=== PATIENT | male | born 1950 | race Caucasian/White ===

== ENCOUNTER → 2019-08-10 | Outpatient (CLI) | payer MEDICARE | END | disposition home or self-care (01) | LOC: RT 09:02 | DX: Z48.298 Encounter for aftercare following other organ transplant (principal); Z79.899 Other long term (current) drug therapy; Z94.2 Lung transplant status | CPT/HCPCS: 94010 ==

== ENCOUNTER → 2020-09-17 | Outpatient (CLI) | payer MEDICARE | END | disposition home or self-care (01) | LOC: Rad HDHVI 13:50 | PROVIDERS: ATTEND Internal Medicine | DX: I07.1 Rheumatic tricuspid insufficiency (principal); I11.9 Hypertensive heart disease without heart failure | CPT/HCPCS: 93306 ==

== ENCOUNTER → 2020-09-23 | Outpatient (CLI) | payer MEDICARE ==
[~2020-09-23] VITALS: Ht 182.9 cm; Wt 96.6 kg
[~2020-09-23] MED LIST: ADENOSINE 81 MG in GIVE UN-DILUTED 0 ML IV ONE; ADENOSINE 90 MG/30 ML INJ IV ONE
== END | disposition home or self-care (01) ==
LOC: Rad HDHVI 12:49
PROVIDERS: ATTEND Internal Medicine Cardiovascular Disease
DX: Z01.810 Encounter for preprocedural cardiovascular examination (principal); I10 Essential (primary) hypertension; E78.5 Hyperlipidemia, unspecified; Z82.49 Family history of ischemic heart disease and other diseases of the circulatory system
CPT/HCPCS: 78452; 93005; 96374; 96375; A9500; J0153

== ENCOUNTER → 2021-12-04 | Outpatient (CLI) | payer MEDICARE | END | disposition home or self-care (01) | LOC: Rad HDHVI 14:54 | PROVIDERS: ATTEND Internal Medicine Cardiovascular Disease | DX: R07.89 Other chest pain (principal); I10 Essential (primary) hypertension | CPT/HCPCS: 93306 ==

== ENCOUNTER → 2022-09-11 | Outpatient (CLI) | payer MEDICARE | END | disposition home or self-care (01) | LOC: Rad HDHVI 14:38 | PROVIDERS: ATTEND Internal Medicine Cardiovascular Disease | DX: I11.9 Hypertensive heart disease without heart failure (principal); R94.31 Abnormal electrocardiogram [ECG] [EKG] | CPT/HCPCS: 93306 ==

== ENCOUNTER → 2022-09-14 | Outpatient (CLI) | payer MEDICARE ==
[~2022-09-14] VITALS: Ht 182.9 cm; Wt 83.9 kg
[~2022-09-14] MED LIST changes: +ADENOSINE 70 MG in GIVE UN-DILUTED 0 ML IV ONE; -ADENOSINE 81 MG in GIVE UN-DILUTED 0 ML IV ONE
== END | disposition home or self-care (01) ==
LOC: Rad HDHVI 08:07
PROVIDERS: ATTEND Internal Medicine Cardiovascular Disease
DX: Z01.810 Encounter for preprocedural cardiovascular examination (principal); I10 Essential (primary) hypertension; E78.5 Hyperlipidemia, unspecified; Z82.49 Family history of ischemic heart disease and other diseases of the circulatory system
CPT/HCPCS: 78452; 93005; 96374; 96375; A9500; J0153

== ENCOUNTER 2022-11-21 11:46 | Inpatient (IN) | payer MEDICARE ==
[~2022-11-21] VITALS: Ht 182.9 cm; Wt 84.0 kg
[2022-11-21 12:51] LABS: Basophils # (auto) 0.1 10 ^3/uL (0-0.2); Basophils % (auto) 0.5 % (0.0-2.0); Eosinophils # (auto) 0 10 ^3/uL (0-0.8); Hematocrit 33.5 % (41.0-53.0); Hemoglobin 10.6 g/dL (13.5-17.5); Lymphocytes # (auto) 0.8 10 ^3/uL (0.4-5.4); Lymphocytes % (auto) 4.8 % (10.0-50.0); Mean Corpuscular Hemoglobin 27.1 pg (28.0-32.0); Mean Corpuscular Hgb Conc. 31.8 g/dL (32.0-36.0); Mean Corpuscular Volume 85.1 fL (80.0-100.0); Monocytes # (auto) 0.8 10 ^3/uL (0-1.3); Monocytes % (auto) 4.5 % (0.0-12.0); Neutrophils # (auto) 14.9 10 ^3/uL (1.6-8.6); Neutrophils % (auto) 90.2 % (37.0-80.0); Red Blood Cells 3.94 10^6/uL (4.5-5.90); Red Cell Distribution Width 16.5 % (11.8-14.3); White Blood Cell 16.5 10^3/uL (4.4-10.8)
[2022-11-21 13:12] LABS: Alanine Aminotransferase 16 U/L (7-40); Albumin 4.3 g/dL (3.2-4.8); Alkaline Phosphatase 140 U/L (46-116); Anion Gap 10 (5-15); Aspartate Aminotransferase 21 U/L (13-40); BUN/Creatinine Ratio 10.9 (10.0-20.0); Blood Urea Nitrogen 24 mg/dL (9-23); Carbon Dioxide 24 mmol/L (20-30); Chloride 108 mmol/L (98-107); Glucose 191 mg/dL (74-106); Sodium 142 mmol/L (136-145)
[2022-11-21 13:13] LABS: Bilirubin, Total 0.9 mg/dL (0.2-1.0); Total Protein 7.4 g/dL (5.7-8.2)
[2022-11-21] MEDS ORDERED: ONDANSETRON HCL 4 MG/2 ML VIAL IV ONE (13:30)
[2022-11-21] MEDS ORDERED: SODIUM CHLORIDE 0.9% 1,000 ML IV ONE ×2 (13:30→15:00)
[2022-11-21] MEDS ORDERED: PIPERACILLIN-TAZOB 3.375GM 100 ML IV ONE (14:15)
[2022-11-21 14:23] LABS: Urine Bacteria NONE SEEN /hpf (None Seen); Urine Blood Negative /uL (Negative); Urine Clarity Clear (Clear); Urine Color Yellow (Yellow); Urine Hyaline Cast FEW /lpf (0 - 2); Urine Protein, UAD 3+ (Negative); Urine Urobilinogen Normal (Negative); Urine WBC 1 /hpf (0 - 3)
[2022-11-21 14:26] LABS: Lactic Acid w/Reflex 2.7 mmol/L (0.4-2.0)
[2022-11-21 15:30] VITALS: PULSE 70; RESP 18; O2SAT 97
[2022-11-21 19:50] VITALS: PULSE 72; RESP 20; O2SAT 98
[2022-11-21] MEDS ORDERED: SOD CHL 0.45% 1,000 ML IV SCH ×2 (20:45→21:45)
[2022-11-21] MEDS ORDERED: HYDROcodone-ACET 5/325MG TAB PO PRN (20:45)
[2022-11-21] MEDS ORDERED: ACETAMINOPHEN 325 MG TAB PO PRN (20:45)
[2022-11-21] MEDS ORDERED: ONDANSETRON HCL 4 MG/2 ML VIAL IV PRN (20:45)
[2022-11-21] MEDS ORDERED: DEXTROSE (50%) 50ML SYRG IV PRN (20:45)
[2022-11-21] MEDS ORDERED: MORPHINE SULFATE INJ 2 MG/ml SYRG IV PRN (21:15)
[2022-11-21] MEDS ORDERED: NITROGLYCERIN 0.4 MG SL TAB SL PRN (21:15)
[2022-11-21] MEDS ORDERED: FUROSEMIDE 40 MG/4 ML VIAL IV ONE (21:45)
[2022-11-21] MEDS: TACROLIMUS 1 MG CAP PO SCH (22:00)
[2022-11-21] MEDS: FAMOTIDINE (10MG/ML) 2ML VL IV SCH (22:00)
[2022-11-21] MEDS: HEPARIN SODIUM (PORCINE) 5000 UNITS/ML 1ML VIAL SC SCH (22:35)
[2022-11-21] MEDS: metroNIDAZOLE 500MG/100ML 100 ML IV SCH (22:39)
[2022-11-21] MEDS ORDERED: TACR1CAP19 PO (23:29)
[2022-11-21] MEDS ORDERED: CARV25TA55 PO (23:29)
[2022-11-21] MEDS ORDERED: SULF400T11 PO (23:29)
[2022-11-21] MEDS ORDERED: ATOR40TA52 PO (23:29)
[2022-11-21] MEDS ORDERED: PRE5T PO (23:29)
[2022-11-21] MEDS ORDERED: MULT-1058 PO (23:29)
[2022-11-21] MEDS ORDERED: DOXA1TAB41 PO (23:29)
[2022-11-21] MEDS ORDERED: ALLO100T PO (23:29)
[2022-11-21] MEDS ORDERED: OMEP20TA PO (23:29)
[2022-11-22] VITALS (9 sets, daily range): BP systolic 134–165; BP diastolic 65–115; PULSE 65–84; RESP 14–18; TEMP 97.7–98.4; O2SAT 91–98
[2022-11-22] MEDS ORDERED: AZIT-43 PO (00:30)
[2022-11-22] MEDS ORDERED: MAGN241.4 PO (00:30)
[2022-11-22] MEDS ORDERED: CHOL50007 PO (00:30)
[2022-11-22] MEDS ORDERED: SIRO1TAB4 PO (00:30)
[2022-11-22] MEDS ORDERED: CALCTAB28 PO (00:30)
[2022-11-22] MEDS: ACCU-CHEK COMFORT CURVE STRIP VI SCH ×4 (00:53→18:28)
[2022-11-22] MEDS: MORPHINE SULFATE INJ 2 MG/ml SYRG IV PRN ×3 (00:54→21:02)
[2022-11-22] MEDS: metroNIDAZOLE 500MG/100ML 100 ML IV SCH ×3 (05:50→21:40)
[2022-11-22] MEDS: InsuLIN REG 1unit/0.01ml Soln (100units/ml) SC SCH ×5 (06:00→23:59)
[2022-11-22 06:27] LABS: Basophils # (auto) 0 10 ^3/uL (0-0.2); Basophils % (auto) 0.1 % (0.0-2.0); Eosinophils # (auto) 0 10 ^3/uL (0-0.8); Eosinophils % (auto) 0.2 % (0.0-7.0); Hematocrit 28.4 % (41.0-53.0); Lymphocytes % (auto) 6.7 % (10.0-50.0); Mean Corpuscular Hemoglobin 27.1 pg (28.0-32.0); Mean Corpuscular Hgb Conc. 31.6 g/dL (32.0-36.0); Mean Corpuscular Volume 85.6 fL (80.0-100.0); Monocytes # (auto) 0.9 10 ^3/uL (0-1.3); Neutrophils # (auto) 13.1 10 ^3/uL (1.6-8.6); Red Blood Cells 3.32 10^6/uL (4.5-5.90); Red Cell Distribution Width 16.5 % (11.8-14.3); White Blood Cell 15.1 10^3/uL (4.4-10.8)
[2022-11-22 06:39] LABS: Alanine Aminotransferase 12 U/L (7-40); Albumin 3.5 g/dL (3.2-4.8); Alkaline Phosphatase 129 U/L (46-116); Anion Gap 8 (5-15); Aspartate Aminotransferase 15 U/L (13-40); BUN/Creatinine Ratio 12.6 (10.0-20.0); Blood Urea Nitrogen 25 mg/dL (9-23); Calcium 8.8 mg/dL (8.7-10.4); Carbon Dioxide 25 mmol/L (20-30); Chloride 112 mmol/L (98-107); Glucose 115 mg/dL (74-106); Potassium 3.9 mmol/L (3.5-5.1); Sodium 145 mmol/L (136-145)
[2022-11-22 06:40] LABS: Bilirubin, Total 0.5 mg/dL (0.2-1.0); Total Protein 6.1 g/dL (5.7-8.2)
[2022-11-22] MEDS: cefTRIAXone 1GM/50ML D5W 50 ML IV SCH (08:58)
[2022-11-22] MEDS ORDERED: SOD CHL 0.45% 1,000 ML IV SCH (09:15)
[2022-11-22] MEDS ORDERED: FUROSEMIDE 40 MG/4 ML VIAL IV SCH (10:00)
[2022-11-22] MEDS: HEPARIN SODIUM (PORCINE) 5000 UNITS/ML 1ML VIAL SC SCH ×2 (10:49→21:42)
[2022-11-22] MEDS: TACROLIMUS 1 MG CAP PO SCH ×2 (11:18→21:41)
[2022-11-22] MEDS: SOD CHL 0.45% 1,000 ML IV SCH (11:18)
[2022-11-22] MEDS: FAMOTIDINE (10MG/ML) 2ML VL IV SCH ×2 (11:19→21:41)
[2022-11-22] MEDS: SIROLIMUS 0.5 MG PO SCH (21:41)
[2022-11-23] VITALS (8 sets, daily range): BP systolic 139–174; BP diastolic 67–88; PULSE 65–111; RESP 14–19; TEMP 98–99.7; O2SAT 90–96
[2022-11-23] MEDS: ACCU-CHEK COMFORT CURVE STRIP VI SCH ×5 (00:01→23:45)
[2022-11-23] MEDS: MORPHINE SULFATE INJ 2 MG/ml SYRG IV PRN ×2 (05:06→11:07)
[2022-11-23] MEDS: metroNIDAZOLE 500MG/100ML 100 ML IV SCH ×3 (05:33→21:08)
[2022-11-23] MEDS: InsuLIN REG 1unit/0.01ml Soln (100units/ml) SC SCH ×4 (05:45→23:45)
[2022-11-23] MEDS: TACROLIMUS 1 MG CAP PO SCH ×2 (09:26→21:09)
[2022-11-23] MEDS: cefTRIAXone 1GM/50ML D5W 50 ML IV SCH (09:26)
[2022-11-23] MEDS: predniSONE 5 MG TAB PO SCH (09:26)
[2022-11-23] MEDS: SIROLIMUS 0.5 MG PO SCH ×2 (09:26→21:09)
[2022-11-23] MEDS: FAMOTIDINE (10MG/ML) 2ML VL IV SCH ×2 (09:26→21:08)
[2022-11-23] MEDS: HEPARIN SODIUM (PORCINE) 5000 UNITS/ML 1ML VIAL SC SCH ×2 (09:58→21:18)
[2022-11-23] MEDS ORDERED: CARVEDILOL 12.5 MG TAB PO ONE (12:30)
[2022-11-23 13:34] LABS: Chloride 112 mmol/L (98-107); Potassium 4.1 mmol/L (3.5-5.1); Sodium 145 mmol/L (136-145)
[2022-11-23 13:35] LABS: Anion Gap 9 (5-15); Carbon Dioxide 24 mmol/L (20-30)
[2022-11-23 13:36] LABS: Calcium 8.7 mg/dL (8.5-10.1)
[2022-11-23 13:40] LABS: BUN/Creatinine Ratio 16.6 (10.0-20.0); Blood Urea Nitrogen 30 mg/dL (9-23); Glucose 130 mg/dL (74-106)
[2022-11-23] MEDS: SOD CHL 0.45% 1,000 ML IV SCH ×2 (13:40)
[2022-11-23] MEDS: CARVEDILOL 12.5 MG TAB PO SCH (21:09)
[2022-11-24] MEDS ORDERED: cloNIDine HCL 0.1 MG TAB PO ONE (00:45)
[2022-11-24] MEDS: SOD CHL 0.45% 1,000 ML IV SCH ×2 (03:18→16:20)
[2022-11-24 05:00] VITALS: BP 157/89; PULSE 67; RESP 20; TEMP 98.8; O2SAT 92
[2022-11-24] MEDS: InsuLIN REG 1unit/0.01ml Soln (100units/ml) SC SCH ×3 (05:41→17:42)
[2022-11-24] MEDS: metroNIDAZOLE 500MG/100ML 100 ML IV SCH ×2 (05:47→14:00)
[2022-11-24] MEDS: ACCU-CHEK COMFORT CURVE STRIP VI SCH ×3 (05:47→17:42)
[2022-11-24 06:36] LABS: Chloride 111 mmol/L (98-107); Potassium 3.7 mmol/L (3.5-5.1); Sodium 143 mmol/L (136-145)
[2022-11-24 06:37] LABS: Anion Gap 8 (5-15); Calcium 8.9 mg/dL (8.5-10.1); Carbon Dioxide 24 mmol/L (20-30)
[2022-11-24 06:42] LABS: BUN/Creatinine Ratio 14.6 (10.0-20.0); Blood Urea Nitrogen 26 mg/dL (9-23); Glucose 122 mg/dL (74-106)
[2022-11-24 08:00] VITALS: PULSE 75
[2022-11-24 08:50] VITALS: BP 163/77; PULSE 73; RESP 17; TEMP 98.2; O2SAT 90
[2022-11-24] MEDS: cefTRIAXone 1GM/50ML D5W 50 ML IV SCH (09:44)
[2022-11-24] MEDS: predniSONE 5 MG TAB PO SCH (09:44)
[2022-11-24] MEDS: CARVEDILOL 12.5 MG TAB PO SCH (09:48)
[2022-11-24] MEDS: FAMOTIDINE (10MG/ML) 2ML VL IV SCH (09:49)
[2022-11-24] MEDS: SIROLIMUS 0.5 MG PO SCH (09:50)
[2022-11-24] MEDS: TACROLIMUS 1 MG CAP PO SCH (09:51)
[2022-11-24] MEDS: HEPARIN SODIUM (PORCINE) 5000 UNITS/ML 1ML VIAL SC SCH (10:02)
[2022-11-24 12:39] VITALS: BP 152/82; PULSE 75; RESP 17; TEMP 98.1; O2SAT 92
[2022-11-24 14:36] LABS: Basophils # (auto) 0.1 10 ^3/uL (0-0.2); Eosinophils # (auto) 0.1 10 ^3/uL (0-0.8); Hemoglobin 8.7 g/dL (13.5-17.5); Monocytes # (auto) 0.8 10 ^3/uL (0-1.3); Monocytes % (auto) 7.6 % (0.0-12.0); Nucleated Red Blood Cells % 0.2 %; Red Cell Distribution Width 16.7 % (11.8-14.3)
[2022-11-24 14:37] LABS: Basophils % (auto) 0.7 % (0.0-2.0); Eosinophils % (auto) 0.9 % (0.0-7.0); Hematocrit 27.1 % (41.0-53.0); Lymphocytes # (auto) 0.8 10 ^3/uL (0.4-5.4); Lymphocytes % (auto) 8.4 % (10.0-50.0); Mean Corpuscular Hemoglobin 27.3 pg (28.0-32.0); Mean Corpuscular Hgb Conc. 32.3 g/dL (32.0-36.0); Mean Corpuscular Volume 84.7 fL (80.0-100.0); Neutrophils # (auto) 8.2 10 ^3/uL (1.6-8.6); Neutrophils % (auto) 82.4 % (37.0-80.0)
[2022-11-24 15:15] LABS: Alanine Aminotransferase 16 U/L (7-40); Albumin 3.4 g/dL (3.2-4.8); Alkaline Phosphatase 149 U/L (46-116); Amylase 61 U/L (30-118); Anion Gap 6 (5-15); Aspartate Aminotransferase 33 U/L (13-40); BUN/Creatinine Ratio 13.9 (10.0-20.0); Blood Urea Nitrogen 26 mg/dL (9-23); Calcium 8.8 mg/dL (8.7-10.4); Carbon Dioxide 25 mmol/L (20-30); Chloride 111 mmol/L (98-107); Glucose 159 mg/dL (74-106); Lipase 48 U/L (12-53); Sodium 142 mmol/L (136-145)
[2022-11-24 15:16] LABS: Bilirubin, Total 0.3 mg/dL (0.2-1.0)
[2022-11-24 17:00] VITALS: BP 168/81; PULSE 74; RESP 16; TEMP 98.2; O2SAT 91
== END 2022-11-24 19:12 | disposition home health service (06) | DRG 439 ==
LOC: ER 11:46 → TELE 21:14 → TELE-WESTW 23:19
PROVIDERS: ADMIT Nurse Practitioner Family; ATTEND Internal Medicine Cardiovascular Disease
DX: K85.90 Acute pancreatitis without necrosis or infection, unspecified (principal); E87.20 Acidosis, unspecified; N17.9 Acute kidney failure, unspecified; I13.0 Hypertensive heart and chronic kidney disease with heart failure and stage 1 through stage 4 chronic kidney disease, or unspecified chronic kidney disease; K86.2 Cyst of pancreas; Z94.2 Lung transplant status; I50.9 Heart failure, unspecified; D64.9 Anemia, unspecified; N18.30 Chronic kidney disease, stage 3 unspecified; E86.1 Hypovolemia; E66.9 Obesity, unspecified; Z68.25 Body mass index [BMI] 25.0-25.9, adult; D72.829 Elevated white blood cell count, unspecified
CPT/HCPCS: 36415; 71045; 74176; 78582; 80048; 80053; 80197; 81001; 82150; 82306; 82962; 83036; 83605; 83690; 83880; 83970; 84100; 84484; 85025; 85379; 87040; 93005; 96361; 96365; 96375; G0378; J0696; J1815; J2405; J2543; J3490; J7507

== ENCOUNTER → 2023-11-03 | Outpatient (CLI) | payer MEDICARE ==
[~2023-11-03] MED LIST changes: -ADENOSINE 70 MG in GIVE UN-DILUTED 0 ML IV ONE; -ADENOSINE 90 MG/30 ML INJ IV ONE; +ALLO100T PO; +ATOR40TA52 PO; +AZIT-43 PO; +CALCTAB28 PO; +CARV25TA55 PO; +CHOL50007 PO; +DOXA1TAB41 PO; +MAGN241.4 PO; +MULT-1058 PO; +OMEP20TA PO; +PRE5T PO; +SIRO1TAB4 PO; +SULF400T11 PO; +TACR1CAP19 PO
== END | disposition home or self-care (01) ==
LOC: Rad HDHVI 08:04
PROVIDERS: ATTEND Internal Medicine Cardiovascular Disease
DX: I10 Essential (primary) hypertension (principal)
CPT/HCPCS: 93880

== ENCOUNTER → 2023-11-15 | Outpatient (CLI) | payer MEDICARE ==
[~2023-11-15] VITALS: Ht 182.9 cm; Wt 77.1 kg
[~2023-11-15] MED LIST changes: +ADENOSINE 65 MG in GIVE UN-DILUTED 0 ML IV ONE; +ADENOSINE 90 MG/30 ML INJ IV ONE; +cloNIDine HCL 0.1 MG TAB ONE
== END | disposition home or self-care (01) ==
LOC: Rad HDHVI 08:06
PROVIDERS: ATTEND Internal Medicine Cardiovascular Disease
DX: I11.0 Hypertensive heart disease with heart failure (principal); I50.23 Acute on chronic systolic (congestive) heart failure; E11.21 Type 2 diabetes mellitus with diabetic nephropathy; E78.00 Pure hypercholesterolemia, unspecified
CPT/HCPCS: 78452; 93005; 96374; A9500; J0153; 96375